=== PATIENT | female | born 1995 | race Caucasian/White ===

== ENCOUNTER 2019-04-27 08:59 | Emergency (ER) | payer BC ==
--- OUTSIDE RECORDS SUMMARY | 2019-04-27 09:15 | XMS REPORT | Continuity of Care Document ---
:1995 External Reference #:[id number] Author Name Mick Quinn NP (transmitted by agent of provider Alison Lundy) Address [address], [place] [address] Care Team Providers Name Role Phone [facility] Care Team Information Still Operator Gin [phone] Problems Description No Information Available Social History Type Date Description Comments Sex Unknown ETOH Use Denies alcohol use Tobacco Use Start: Unknown Patient has never smoked Smoking Status Reviewed: 03/31/19 Patient has never smoked Exercise Exercises rarely because of bleed but Type/Frequency before was regular. Allergies, Adverse Reactions, Alerts Description No Known Drug Allergies Medications Active Medications SIG Qnty Indications Ordering Provider Date Albuterol Sulfate two puffs every 4 Unknown HFA hours for SOB, 108(90Base) exercise induced mcg/Act Aerosol exercise prn Nexplanon Unknown 68mg Implant Baclofen take one tab by 150tabs Yasmany Vo, 5mg Tablets mouth 5 times a M.D. day Immunizations Description No Information Available Vital Signs Date Vital Result Comment 03/31/2019 1:59pm Height 64 inches 5'4" Weight 128.00 lb Heart Rate 96 /min BP Systolic Sitting 100 mmHg BP Diastolic Sitting 70 mmHg Respiratory Rate 16 /min BMI (Body Mass Index) 22.0 kg/m2 02/17/2019 11:06am Height 64 inches 5'4" Weight 127.00 lb Heart Rate 64 /min BP Systolic 130 mmHg BP Diastolic 72 mmHg BMI (Body Mass Index) 21.8 kg/m2 Results Description No Information Available Procedures Description No Information Available Medical Devices Description No Information Available Encounters Description No Information Available Assessments Date Code Description Provider 03/31/2019 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 Week #2 , take Baclofen at 7, 1 pm and bedtime for one week Week#3, take Baclofen at 7 and bedtime for one week, Week#4, take Baclofen at bedtime for one week and then discontinue. OK to go back to light weightsfor weight lifting. Report any symptoms of hiccuping. Functional Status Description No Information Available Mental Status Description No Information Available Referrals Refer to Dr Reason for Referral Status Appt Date Mikey Ann, PH.D. Hx of cavernous hemangiomas. Sent 04/06/2018 [facility] [place] [address] [phone]
--- NOTE | 2019-04-27 09:25 | ED ---
Dizziness - HPI Summary HPI Summary: This patient is a 24 year old F with a hx of cavernous angiomas presenting to ED with a chief complaint of dizziness since three days ago. Patient was diagnosed with cavernous angiomas three months ago. For the past three months, patients symptoms have been under control. She has been trying to reduce the amount of Baclofen which she took for intractable hiccups. Patients last dose reduction was four days ago from 3.5 pills to 3 pills. She got worsening dizziness two days after reducing the dose. The past few days however she has been having abnormally dizziness constantly. Last night patient kept waking up feeling like she was on a boat. This morning upon waking up, the patient found it hard to stand and walk around as if she just stepped off a merry-go- around. The patient rates the pain 0/10 in severity. Symptoms aggravated by nothing. Symptoms alleviated by nothing. Patient reports trembling in the arms and legs. Patient denies fever, weakness, visual changes, numbness, tingling, myalgia, hearing changes. Medications reviewed. Allergies noted. Patient's father is a physician in [place]. - History Of Current Complaint Chief Complaint: EDDizziness Stated Complaint: DIZZINESS PER PT Time Seen by Provider: 04/27/19 09:15 Hx Obtained From: Patient Onset/Duration: Still Present, Gradually Timing: Constant Severity Initially: Mild Severity Currently: Moderate Character: Dizzy Aggravating Factor(s): Nothing Alleviating Factor(s): Nothing Associated Signs And Symptoms: Positive: Negative - fever, weakness, visual changes, numbness, tingling, myalgia, hearing changes, Change In Medication, Other: - Trembling in arms and legs - Allergies/Home Medications Allergies/Adverse Reactions: Allergies Allergy/AdvReac Type Severity Reaction Status Date / Time No Known Allergies Allergy Verified 04/27/19 09:06 Home Medications: Home Medications Baclofen TAB* [Lioresal TAB*] 5 mg PO TID 04/27/19 [History Confirmed 04/27/19] PMH/Surg Hx/FS Hx/Imm Hx Endocrine/Hematology History: Denies: Hx Diabetes Cardiovascular History: Denies: Hx Hypercholesterolemia, Hx Hypertension, Hx Myocardial Infarction Sensory History: Denies: Hx Legally Blind, Hx Deafness Opthamlomology History: Denies: Hx Legally Blind EENT History: Denies: Hx Deafness Neurological History: Reports: Other Neuro Impairments/Disorders - Cavernous angioma - Surgical History Surgery Procedure, Year, and Place: Denies Infectious Disease History: No Infectious Disease History: Denies: Traveled Outside the [place] in Last 30 Days - Family History Known Family History: Positive: Other - Nearsightedness - Social History Alcohol Use: None Hx Substance Use: No Substance Use Type: Reports: None Hx Tobacco Use: No Smoking Status (MU): Never Smoked Tobacco Review of Systems Negative: Fever Eyes: Negative - visual changes ENT: Negative - Hearing changes Musculoskeletal: Other - Trembling in the arms and legs Negative: Myalgia Neurological: Negative - Tingling, Other - Dizziness Negative: Weakness, Numbness All Other Systems Reviewed And Are Negative: Yes Physical Exam - Summary Physical Exam Summary: Constitutional: Well-developed, Well-nourished, Alert. (-) Distressed Skin: Warm, Dry HENT: Normocephalic; Atraumatic Eyes: Conjunctiva normal Neck: Musculoskeletal ROM normal neck. (-) JVD, (-) Stridor, (-) Tracheal deviation Cardio: Rhythm regular, rate normal, Heart sounds normal; Intact distal pulses. Radial pulses are 2+ and symmetric. (-) Murmur Pulmonary/Chest wall: Effort normal. (-) Respiratory distress, (-) Wheezes, (-) Rales Abd: Soft. (-) Tenderness, (-) Distension, (-) Guarding, (-) Rebound Musculoskeletal: (-) Edema Lymph: (-) Cervical adenopathy Neuro: Alert, Oriented x3, Strength normal, Cranial nerves II-XII are grossly intact. (-) Dysmetria, (-) Nystagmus, (-) Ataxia by finger to nose testing, (-) Sensory deficit. NIH: 0 GCS: 15 Psych: Mood and affect Normal Triage Information Reviewed: Yes Vital Signs On Initial Exam: Initial Vitals Temp Pulse Resp BP Pulse Ox 97.9 F 116 18 132/83 99 04/27/19 09:01 04/27/19 09:01 04/27/19 09:01 04/27/19 09:01 04/27/19 09:01 Vital Signs Reviewed: Yes Procedures - Sedation Patient Received Moderate/Deep Sedation with Procedure: No Diagnostics - Vital Signs Vital Signs Temp Pulse Resp BP Pulse Ox 11/19/19 09:01 97.9 F 116 18 132/83 99 - Laboratory Result Diagrams: 04/27/19 10:03 04/27/19 10:03 Lab Statement: Any lab studies that have been ordered have been reviewed, and results considered in the medical decision making process. - CT Brain CT Interpretation Completed By: Radiologist Summary of CT Findings: THERE ARE MULTIPLE HIGH ATTENUATION LESIONS CORRESPONDING TO CAVERNOUS ANGIOMAS IDENTIFIABLE ON THE PREVIOUS MRI OF 2018 WITHOUT FINDINGS TO SUGGEST ACUTE PARENCHYMAL HEMORRHAGE. Dr. Hooper has reviewed this radiology report. - Additional Comments Diagnostic Additional Comments: Brain MRI intepreted by Radiologist: AGAIN NOTED ARE MULTIPLE MIXED T1 AND T2 SIGNAL LESIONS AND MULTIFOCAL SUSCEPTIBILITY ARTIFACT CONSISTENT WITH MULTIPLE INTRACRANIAL CAVERNOUS ANGIOMAS, INCLUDING A DOMINANT LESION OF THE LEFT ANTERIOR CINGULATE GYRUS AND OF THE LEFT MEDULLA. ACCOUNTING FOR DIFFERENCES IN TECHNIQUE, THERE HAS BEEN NO SIGNIFICANT CHANGE FROM 2018. Dr. Hooper has reviewed this radiology report. National Institutes Of Health - NIH Scale Level of Consciousness: Alert/Keenly Responsive Ask Patient the Month and His/Her Age: Both Correct Ask Pt to Open/Close Eyes and Professor Of Sport Management/Release Non-Paretic Hand: Both Correctly Best Gaze (Only Horizontal Eye Movement): Normal Visual Field Testing: No Visual Loss Facial Paresis-Pt to Smile & Close Eyes or Grimace Symmetry: Normal/Symmetrical Motor Function - Right Arm: No Drift-Holds 10 Seconds Motor Function - Left Arm: No Drift-Holds 10 Seconds Motor Function - Right Leg: No Drift-Holds 10 Seconds Motor Function - Left Leg: No Drift-Holds 10 Seconds Limb Ataxia-Must be out of Proportion to Weakness Present: Absent Sensory (Use Pinprick to Test Arms/Legs/Trunk/Face): Normal Best Language (Describe Picture, Name Items): No Aphasia Dysarthria (Read Several Words): Normal Extinction and Inattention: No Abnormality Total Score: 0 Re-Evaluation - Re-Evaluation First Eval Re-Evaluation Time: 11:03 Comment: Discussed results with patient and patient's father. They agree to MRI study. Second Eval Re-Evaluation Time: 15:09 Comment: Discussed results with patient and patient's father. Patient will be discharged home with dx of dizziness. Patient understands and agrees with this plan. Dizzy Course/Dx - Course Course Of Treatment: Patient is here with dizziness in the setting of known cavernous angiomas. Patient had a normal neurologic exam upon arrival. Patient had a negative CT head for any changes. Patient had blood work performed which was grossly unremarkable. Neurology was called and they recommended MRI which was performed in the ED with no changes. Patient's father who is a physician was called 3 times myself to be made aware of results. Patient And family were comfortable with discharge. - Diagnoses Provider Diagnoses: Dizziness - Provider Notifications Discussed Care Of Patient With: Mani Hodges Time Discussed With Above Provider: 11:08 Instructed by Provider To: Other - Discussed patient case with Dr. Hodges, who recommends MRI. - Critical Care Time Critical Care Time: 30-74 min - 35 minutes Discharge ED - Sign-Out/Discharge Documenting (check all that apply): Patient Departure - Discharge - Discharge Plan Condition: Stable Disposition: HOME Patient Education Materials: Dizziness (ED) Referrals: [facility] [Outside] - 3 Days Yasmany Vo MD [Medical Doctor] - 3 Days Additional Instructions: PLEASE RETURN TO EMERGENCY DEPARTMENT FOR ANY NEW OR WORSENING SYMPTOMS. Please follow up with your primary care physician and with Dr. Vo in 1-3 days. - Billing Disposition and Condition Condition: STABLE Disposition: Home - Attestation Statements Document Initiated by Estephaniaibe: Yes Documenting Scribe: Tim Vaughan Provider For Whom Brandon is Documenting (Include Credential): Jama Hooper MD Scribe Attestation: Tim Lemon, scribed for Jama Hooper MD on 04/27/19 at 1516. Scribe Documentation Reviewed: Yes Provider Attestation: The documentation as recorded by the Tim burnham accurately reflects the service I personally performed and the decisions made by me, Jama Hooper MD Status of Scribe Document: Viewed
[2019-04-27 10:12] LABS: ABS Eosinophils 0.2 10^3/ul (0-0.6); ABS Monocytes 0.3 10^3/ul (0-0.8); ABS Neutrophils 5.8 10^3/ul (1.5-7.7); Eosinophil % 2.6 %; Hematocrit 42 % (35-47); Hemoglobin 14.1 g/dL (12.0-16.0); Lymphocyte % 13.3 %; Mean Corpuscular HGB Conc 34 g/dL (31-36); Mean Corpuscular Hemoglobin 32 pg (27-31); Mean Corpuscular Volume 95 fL (80-97); Mean Platelet Volume 7.5 fL (7.4-10.4); Platelet Count 181 10^3/uL (150-450); Red Blood Count 4.39 10^6 /uL (3.70-4.87); Red Cell Distribution Width 12 % (10-15); White Blood Count 7.4 10^3/uL (3.5-10.8)
[2019-04-27 10:35] LABS: ALT 14 U/L (7-52); AST 19 U/L (13-39); Albumin 4.4 g/dL (3.2-5.2); Alkaline Phosphatase 44 U/L (34-104); Anion Gap 5 mmol/L (2-11); BUN/Creatinine Ratio 19.1 (8-20); Blood Urea Nitrogen 17 mg/dL (6-24); CO2 Carbon Dioxide 26 mmol/L (22-32); Calcium 9.4 mg/dL (8.6-10.3); Chloride 108 mmol/L (101-111); EGFR African American 95.1 (>60); EGFR Non-African American 78.6 (>60); Globulin 2.2 g/dL (2-4); Glucose 102 mg/dL (70-100); Potassium 3.9 mmol/L (3.5-5.0); Sodium 139 mmol/L (135-145); Total Protein 6.6 g/dL (6.4-8.9)
[2019-04-27 10:36] LABS: HCG Pregnancy < 0.60 mIU/mL
[2019-04-27] MEDS ORDERED: Gadoteridol* (CONTRAST) 279.3 MG/ML 10 ML IV ONE (14:30)
[2019-04-27 15:34] VITALS: BP 110/73
== END 2019-04-27 15:34 | disposition home or self-care (01) ==
LOC: ED 08:59
DX: R42 Dizziness and giddiness (principal); Z79.899 Other long term (current) drug therapy
CPT/HCPCS: 36415; 70450; 70553; 80053; 84702; 85025; 99282; A9579